=== PATIENT | male | born 1940 | race Caucasian/White ===

== ENCOUNTER 2020-06-15 12:59 | Outpatient (CLI) | payer MEDICARE, OTHER ==
--- NOTE | 2020-06-15 13:40 | BD ---
EXAM: Bone densitometry using DEXA HISTORY: 80 yo male. Screening for osteoporosis FINDINGS: L1--bone mineral density 1.337 g/sq cm; T score 11.5 ; Z score 12.6 L2--bone mineral density 2.428 g/sq cm; T score 12.1 ; Z score 13.3 L3--bone mineral density 1.771 g/sq cm; T score 6.1 ; Z score 7.3 L4--bone mineral density 1.607 g/sq cm; T score 4.7 ; Z score 5.9 Total L1-L4--bone mineral density 2.107 g/sq cm; T score 9.2 ; Z score 10.4 Left femoral neck--bone mineral density0.857; T score -0.5 ; Z score 1.0 Total proximal left femur--bone mineral density 1.166; T score 0.9 ; Z score 1.9 IMPRESSION: Normal BMD.
== END 2020-06-15 13:00 | disposition home or self-care (01) ==
LOC: BICMAMMO 12:59
PROVIDERS: ATTEND Family Medicine
DX: Z13.820 Encounter for screening for osteoporosis (principal); M88.9 Osteitis deformans of unspecified bone; Z79.83 Long term (current) use of bisphosphonates
CPT/HCPCS: 77080

== ENCOUNTER 2021-12-15 13:14 | Inpatient (IN) | payer MEDICARE, OTHER ==
[2021-12-15] MEDS ORDERED: Lidocaine 0.5%/Epinephrine 1:200,000 50 ml Vial ONE (13:51)
[2021-12-15] MEDS ORDERED: Thrombin 5000 UNITS/5 ML VIAL ONE (13:51)
[2021-12-15] MEDS ORDERED: Promethazine HCl 25 MG/ML VIAL IM PRN ×2 (13:55→15:43)
[2021-12-15] MEDS ORDERED: Ondansetron PF 4 MG/2 ML Vial IVP PRN (13:55)
[2021-12-15] MEDS ORDERED: hydrALAZINE 20 MG/ML VIAL SLOW IVP PRN ×2 (13:55→15:26)
[2021-12-15] MEDS ORDERED: Acetaminophen 500 MG TAB PO SCH (14:00)
[2021-12-15] MEDS ORDERED: fentaNYL Citrate/PF 100 MCG/2 ML SYRINGE ONE (14:05)
[2021-12-15] MEDS ORDERED: Ketamine 50 MG/ML (10ML VIAL) ONE (14:06)
[2021-12-15] MEDS ORDERED: Sodium Chloride 0.9% 100 ML ONE (14:07)
[2021-12-15] MEDS ORDERED: CEFAZOLIN 2 GM VIAL ONE (14:07)
[2021-12-15] MEDS ORDERED: Dexmedetomidine 200 MCG/2 ML VIAL ONE (14:08)
[2021-12-15] MEDS ORDERED: Ondansetron PF 4 MG/2 ML Vial ONE (14:24)
[2021-12-15] MEDS ORDERED: Lidocaine 1% PF 5 ML VIAL ONE (14:24)
[2021-12-15] MEDS ORDERED: PHENYLEPHRINE-NS 100 MCG/ML 10 ML SYRINGE ONE (14:24)
[2021-12-15] MEDS ORDERED: Glycopyrrolate 0.2 MG/ML 5 ML SYRINGE ONE (14:24)
[2021-12-15] MEDS ORDERED: PROPOFOL 200 MG/20 ML VIAL ONE (14:24)
[2021-12-15] MEDS ORDERED: Dexamethasone 20 MG/5 ML VIAL ONE (14:24)
[2021-12-15] MEDS ORDERED: Rocuronium Bromide 10 MG/ML (10ML VIAL) ONE (14:24)
[2021-12-15] MEDS ORDERED: Bacitracin Zinc Ointment 30 gm TUBE ONE (15:16)
[2021-12-15] MEDS ORDERED: SUGAMMADEX SODIUM 200 MG/2 ML VIAL ONE (15:17)
[2021-12-15] MEDS ORDERED: Morphine 2 MG/ML VIAL SLOW IVP PRN (15:24)
[2021-12-15] MEDS ORDERED: Labetalol HCl 100 MG/20 ML VIAL SLOW IVP PRN (15:24)
[2021-12-15] MEDS ORDERED: Promethazine HCl 25 MG/ML VIAL IVPB PRN (15:43)
[2021-12-15] MEDS ORDERED: Ondansetron HCl/PF 4 MG/2 ML Vial IVP PRN (15:43)
[2021-12-15] MEDS ORDERED: Fentanyl 100 MCG/2 ML VIAL ONE (16:22)
[2021-12-15] MEDS: Sodium Chloride 0.9% 1,000 ML IV SCH (18:38)
[2021-12-15] MEDS ORDERED: Famotidine 40 MG/4 ML VIAL SLOW IVP SCH (21:00)
[2021-12-15] MEDS: CEFAZOLIN 2 GM in Sodium Chloride 0.9% 100 ML IVPB SCH (21:25)
[2021-12-16] MEDS: Acetaminophen 500 MG TAB PO SCH ×5 (00:34→23:59)
[2021-12-16] MEDS: Sodium Chloride 0.9% 1,000 ML IV SCH ×3 (03:10→13:21)
[2021-12-16 03:31] LABS: #Lymphocytes 0.9 thou/uL (1.20-3.40); #Monocytes 0.3 thou/uL (0.11-0.59); #Neutrophils 6.7 thou/uL (1.40-6.50); %Basophils 0.1 % (0.0-1.0); %Eosinophils 0.1 % (0.0-10.0); %Lymphocytes 11.8 % (21.0-51.0); %Monocytes 3.2 % (0.0-10.0); %Neutrophils 84.7 % (42.0-75.0); Hemoglobin 13.3 g/dL (14.0-18.0); Mean Corpuscular HGB CONC 33.2 g/dL (32.0-36.0); Mean Corpuscular Hemoglobin 34.5 pg (27.0-31.0); Mean Platelet Volume 7.1 fL (7.4-10.4); Platelet Count 120 thou/uL (130-400); RBC Distribution Width 11.8 % (11.5-14.5); Red Blood Cell (RBC) Count 3.87 mill/uL (4.70-6.10); White Blood Cell (WBC) Count 7.9 thou/uL (4.8-10.8)
[2021-12-16 03:36] LABS: INR-International Normal Ratio 1.2; PTT 28.8 sec (22.9-36.1); Prothrombin Time 15.2 sec (12.0-14.7)
[2021-12-16 03:52] LABS: Phosphorus 3.6 mg/dL (2.3-4.7)
[2021-12-16 03:54] LABS: Anion Gap 13 mmol/L (10-20); BUN (Urea Nitrogen) 30 mg/dL (8.4-25.7); Calc. Creatinine Clearance 119 mL/min (70-130); Calcium 8.1 mg/dL (7.8-10.44); Carbon Dioxide 24 mmol/L (23-31); Chloride 106 mmol/L (98-107); Glucose 125 mg/dL (83-110); Magnesium 1.7 mg/dL (1.6-2.6); Potassium 4.5 mmol/L (3.5-5.1); Sodium 138 mmol/L (136-145)
[2021-12-16 05:08] VITALS: BMI 29.5
[2021-12-16] MEDS: CEFAZOLIN 2 GM in Sodium Chloride 0.9% 100 ML IVPB SCH ×3 (06:31→21:10)
[2021-12-16] MEDS: Famotidine 40 MG/4 ML VIAL SLOW IVP SCH ×2 (08:57→21:10)
[2021-12-16 16:39] VITALS: BP 136/70
[2021-12-17 04:15] VITALS: TEMP 97.3
[2021-12-17] MEDS: CEFAZOLIN 2 GM in Sodium Chloride 0.9% 100 ML IVPB SCH (06:23)
[2021-12-17] MEDS: Acetaminophen 500 MG TAB PO SCH ×2 (06:24→10:19)
== END 2021-12-17 14:19 | disposition home or self-care (01) | DRG 25 ==
LOC: CCU 13:50 → UNDOADMIN 13:50 → CCU 13:56
PROVIDERS: ADMIT Surgery; ATTEND Surgery
PROC: 009400Z Drainage of Intracranial Subdural Space with Drainage Device, Open Approach (ICD-10-PCS; principal; 2021-12-15)
DX: S06.5X0A Traumatic subdural hemorrhage without loss of consciousness, initial encounter (principal); S06.A1XA Traumatic brain compression with herniation, initial encounter; D68.2 Hereditary deficiency of other clotting factors; Z20.822 Contact with and (suspected) exposure to COVID-19; R40.2143 Coma scale, eyes open, spontaneous, at hospital admission; R40.2363 Coma scale, best motor response, obeys commands, at hospital admission; R40.2253 Coma scale, best verbal response, oriented, at hospital admission; W18.30XA Fall on same level, unspecified, initial encounter; I48.91 Unspecified atrial fibrillation; I10 Essential (primary) hypertension; R29.6 Repeated falls; Z91.81 History of falling; Z79.01 Long term (current) use of anticoagulants
CPT/HCPCS: 36415; 80048; 83735; 84100; 85025; 85610; 85730; C1713; J1100; J2001; J2405; J2704; J3010; J3490; J7050

== ENCOUNTER 2021-12-25 12:49 | Outpatient (CLI) | payer MEDICARE, OTHER | END 2021-12-25 12:50 | disposition home or self-care (01) | LOC: BICCT 12:49 | PROVIDERS: ATTEND Neurological Surgery | DX: S06.5X0A Traumatic subdural hemorrhage without loss of consciousness, initial encounter (principal) | CPT/HCPCS: 70450 ==

== ENCOUNTER 2022-01-09 12:13 | Outpatient (CLI) | payer MEDICARE, OTHER | END 2022-01-09 12:14 | disposition home or self-care (01) | LOC: BICCT 12:13 | PROVIDERS: ATTEND Neurological Surgery | DX: S06.5X0A Traumatic subdural hemorrhage without loss of consciousness, initial encounter (principal) | CPT/HCPCS: 70450 ==

== ENCOUNTER 2022-01-23 14:13 | Outpatient (CLI) | payer MEDICARE, OTHER | END 2022-01-23 14:14 | disposition home or self-care (01) | LOC: BICCT 14:13 | PROVIDERS: ATTEND Neurological Surgery | DX: S06.5X0D Traumatic subdural hemorrhage without loss of consciousness, subsequent encounter (principal); R22.0 Localized swelling, mass and lump, head | CPT/HCPCS: 70450 ==

== ENCOUNTER 2022-02-12 12:17 | Outpatient (CLI) | payer MEDICARE, OTHER | END 2022-02-12 12:18 | disposition home or self-care (01) | LOC: BICCT 12:17 | PROVIDERS: ATTEND Neurological Surgery | DX: Z51.81 Encounter for therapeutic drug level monitoring (principal); S06.5X0A Traumatic subdural hemorrhage without loss of consciousness, initial encounter; D68.51 Activated protein C resistance | CPT/HCPCS: 70450 ==

== ENCOUNTER 2022-02-26 09:28 | Outpatient (CLI) | payer MEDICARE, OTHER | END 2022-02-26 09:29 | disposition home or self-care (01) | LOC: BICCT 09:28 | PROVIDERS: ATTEND Neurological Surgery | DX: Z51.81 Encounter for therapeutic drug level monitoring (principal); S06.5X0A Traumatic subdural hemorrhage without loss of consciousness, initial encounter; D68.51 Activated protein C resistance | CPT/HCPCS: 70450 ==

== ENCOUNTER 2022-03-13 09:56 | Outpatient (CLI) | payer MEDICARE, OTHER | END 2022-03-13 09:57 | disposition home or self-care (01) | LOC: BICCT 09:56 | PROVIDERS: ATTEND Neurological Surgery | DX: Z51.81 Encounter for therapeutic drug level monitoring (principal); D68.51 Activated protein C resistance; S06.5X0A Traumatic subdural hemorrhage without loss of consciousness, initial encounter; Z79.01 Long term (current) use of anticoagulants | CPT/HCPCS: 70450 ==